=== PATIENT | male | born 1990 | race Two or more races ===

== ENCOUNTER 2022-01-27 16:56 | Emergency (ER) | payer SELFPAY ==
[~2022-01-27] VITALS: Ht 160 cm; Wt 81.6 kg
--- NOTE | 2022-01-27 17:00 | NUR ---
Received pt 31 yrs male came from work by elda c/o rt lower abdominale pain 8 one HR AGO MERVAT N/V
--- NOTE | 2022-01-27 17:20 | NUR ---
Seen by dr. FAYE
--- NOTE | 2022-01-27 17:25 | NUR ---
Inserted ango catheter G20 on lt ac blood drow and sent to lab
[2022-01-27] MEDS ORDERED: ONDANSETRON HCL/PF 4 MG/2 ML VIAL IVP ONE (17:30)
[2022-01-27] MEDS ORDERED: ONDANSETRON HCL/PF 4 MG/2 ML VIAL ONE (17:37)
[2022-01-27] MEDS ORDERED: KETOROLAC TROMETHAMINE 15 MG/ML VIAL ONE (17:37)
[2022-01-27] MEDS ORDERED: IV NS 0.9% 250 ML IV ONE (17:41)
[2022-01-27] MEDS ORDERED: IOHEXOL-300 100 ML VIAL IV ONE (17:41)
[2022-01-27] MEDS ORDERED: CT SWABBABLE VALVE TRANS SET 1 EA INFUS.SET MC ONE (17:41)
[2022-01-27 17:46] LABS: BASOPHILS # (AUTO) 0.1 K/uL (0.0-0.2); BASOPHILS % (AUTO) 0.8 % (0.0-2.0); EOSINOPHILS % (AUTO) 3.1 % (0.0-6.0); HEMATOCRIT 40 % (39-51); LYMPHOCYTES # (AUTO) 1.7 K/uL (0.8-4.8); MEAN CORPUSCULAR HGB CONC 33 g/dl (31.0-36.0); MEAN CORPUSCULAR VOLUME 83 fL (80-96); MONOCYTES # (AUTO) 0.5 K/uL (0.1-1.30); NEUTROPHILS # (AUTO) 8.2 K/uL (1.8-8.9); NEUTROPHILS % (AUTO) 75.1 % (43.0-81.0); PLATELET COUNT (AUTO) 339 K/uL (150-450); RED BLOOD CELL COUNT(AUTO) 4.74 MIL/uL (4.5-6.0); WHITE BLOOD COUNT (AUTO) 10.9 K/uL (4.3-11.0)
[2022-01-27] MEDS: KETOROLAC TROMETHAMINE INJ 30 MG/ML VIAL IV ONE ×2 (17:47→17:50)
--- NOTE | 2022-01-27 18:00 | NUR ---
TO CT scan with contrast via sirena
[2022-01-27 18:03] LABS: CALCIUM, SERUM 9.5 mg/dL (8.5-10.1); CREATININE 0.8 mg/dL (0.6-1.3); POTASSIUM 3.8 mmol/L (3.5-5.1)
[2022-01-27 18:09] LABS: ALBUMIN 3.8 g/dL (3.4-5.0); BILIRUBIN,DIRECT 0.2 mg/dL (0.0-0.2); BILIRUBIN,TOTAL 0.7 mg/dL (0.2-1.0); TOTAL PROTEIN, SERUM 7.7 g/dL (6.4-8.2)
--- NOTE | 2022-01-27 18:25 | NUR ---
Back from Ct scan done
--- NOTE | 2022-01-27 19:00 | NUR ---
HAND OFF DIOGO JACOBS
--- NOTE | 2022-01-27 19:15 | NUR ---
UA SENT TO LAB
[2022-01-27 19:49] LABS: BILIRUBIN,URINE NEGATIVE (NEGATIVE); COLOR,URINE YELLOW (YELLOW); LEUKOCYTE ESTERASE ,URINE NEGATIVE (NEGATIVE); NITRITE, URINE NEGATIVE (NEGATIVE); PH,URINE 5.5 (5.0-8.0); PROTEIN,URINE NEGATIVE (NEGATIVE); UGLUCOSE NEGATIVE (NEGATIVE); UROBILINOGEN,URINE 0.2 EU/dL (0.2)
[2022-01-27] MEDS ORDERED: HYDR-3976 PO (20:50)
[2022-01-27] MEDS ORDERED: IBUP-1957 PO (20:50)
[2022-01-27 21:12] VITALS: BP 131/66
--- NOTE | 2022-01-27 21:13 | NUR ---
Patient discharged to home in stable condition. Written and verbal after care instructions given. Patient verbalizes understanding of instruction.IV removed. Catheter intact and site benign. Pressure and 4x4 applied to site. No bleeding noted.
== END 2022-01-27 21:12 | disposition home or self-care (01) ==
LOC: ER 16:59
DX: R10.31 Right lower quadrant pain (principal); R59.1 Generalized enlarged lymph nodes
CPT/HCPCS: 99285; 74177; 96374; 96375; 85025; 80048; 83690; 80076; 81003; 36415; J2405; J7050; Q9967; J1885